=== PATIENT | female | born 1965 | race Caucasian/White ===

== ENCOUNTER → 2017-11-23 12:01 | Outpatient (POV) | payer BC, SELFPAY | PROVIDERS: Visit Provider Dentist | DX: Z00.00 Encounter for general adult medical examination without abnormal findings (principal) ==

== ENCOUNTER → 2017-12-21 10:48 | Outpatient (POV) | payer BC, SELFPAY | PROVIDERS: Visit Provider Dentist | DX: Z00.00 Encounter for general adult medical examination without abnormal findings (principal) ==